=== PATIENT | female | born 1995 | race Hispanic/Latino ===

== ENCOUNTER 2022-09-28 00:35 | Emergency (ER) | payer BC, OTHER ==
[~2022-09-28] VITALS: Ht 149.9 cm; Wt 44.9 kg
[2022-09-28] MEDS ORDERED: TETANUS/DIPHTHERIA TOXOID [ADULT] 0.5 ML VIAL IM ONE ×2 (01:29→01:30)
[2022-09-28] MEDS ORDERED: AMOX/CLAV 875/125MG TAB PO ONE (01:30)
[2022-09-28] MEDS ORDERED: DIPH,PERTUSS(ACELL),TET VAC/PF 0.5 ML VIAL IM ONE ×2 (01:30)
[2022-09-28 02:55] VITALS: BP 112/67
[2022-09-28] MEDS ORDERED: AMOX-426 PO (02:58)
== END 2022-09-28 03:07 | disposition home or self-care (01) ==
LOC: EDH 00:35
DX: S01.01XA Laceration without foreign body of scalp, initial encounter (principal); Z90.89 Acquired absence of other organs; Z98.890 Other specified postprocedural states; W54.0XXA Bitten by dog, initial encounter; Y93.89 Activity, other specified; Y92.89 Other specified places as the place of occurrence of the external cause; Y99.8 Other external cause status
CPT/HCPCS: 12001; 90471; 90714; 90715